=== PATIENT | male | born 1975 | race African-American/Black ===

== ENCOUNTER 2024-03-28 09:43 | Outpatient (AMB) | payer OTHER, SELFPAY ==
--- NOTE | 2024-03-28 09:51 | HO.SPINEOV ---
Intake Visit Reasons: Lumbar radiculopathy Intake Note: Mr. Hughes is here today c/o low back pain radiating into left leg. 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 HPI: This 49-year-old male states that he developed pain radiating down his left leg several years ago. Over time, the pain has significantly increased with the electric shocks going down his legs and associated weakness. Specifically, the pain radiates down the outside of her thigh into his groin and to the outside of his lower leg to the top of his foot. It is associated with tingling. He can not stand for prolonged period of times. He noticed a mild footdrop on the left side. He underwent physical therapy chiropractic therapy and cortisone injections without long-lasting results. He comes in for surgical consultation. PMH: Hypertension Medications: [] Allergies: NKDA Social history: Nonsmoker. 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 He sits with his left leg stretched out to avoid pain. Straight leg raise is negative. There is a grade 4/5 weakness of the dorsiflexors and extensor hallucis longus. Radiological Studies: MRI done at [facility] is not available for review. The report states that there is severe spinal stenosis at L4-5 and an extraforaminal compression of the left L5 nerve root. Impression/Plan: This 49-year-old male is suffering from a persistent left L5 lumbar radiculopathy with associated weakness. The report is indicative of L5 pathology that requires a decompression. I need to see the MRI to determine what type of intervention is required. The patient will return to my clinic with the MRI to finalize the plan. Thank you for allowing me to participate in your patients care. total time spent was 50 minutes in counseling ,coordination of plan, personal review of imaging, surgical decision making and subsequent plan Kiet Tierney MD, PhD Spine Fellowship Trained Neurosurgeon Director, [facility] Coding Level of Care Code New Pt Level 4 (84850) Diagnoses Lumbar stenosis with neurogenic claudication M48.062
--- NOTE | 2024-04-02 13:12 | A.SPINEOV_ITS ---
Intake Visit Reasons: Lumbar radiculopathy Assessment & Plan Assessment & Plan (1) Lumbar stenosis with neurogenic claudication: Code(s): M48.062 - Spinal stenosis, lumbar region with neurogenic claudication Category: Medical Plan: Dear colleague, On 04/02/2024, I saw for follow-up Haider Hughes to discuss his MRI findings. As you know, he suffering from a left lumbar radiculopathy/neurogenic claudication with a partial drop foot. The MRI was reviewed in detail with the patient and shows severe spinal stenosis L4-5 and severe bilateral L5 foraminal stenosis. In addition there is also moderate L2-3 central spinal stenosis. Clinically, the patient is suffering from an L5 nerve root impingement and therefore I propose to do a left L4-5 hemilaminotomy and L5 foraminotomy to decompress the L5 nerve root. I discussed the procedure, complications and expected outcome. He will be scheduled for 06/26/2024. I spent 20 minutes in his consult. Kiet Tierney MD, PhD Spine Fellowship Trained Neurosurgeon Director, [facility] Coding Level of Care Code Est Pt Level 3 (63312) Diagnoses Lumbar stenosis with neurogenic claudication M48.062
== END 2024-03-28 11:30 | disposition left against medical advice (07) ==
PROVIDERS: PCP Internal Medicine; Referring Provider Physical Medicine & Rehabilitation; Visit Provider Neurological Surgery
DX: M48.062 Spinal stenosis, lumbar region with neurogenic claudication (principal)
CPT/HCPCS: 99204

== ENCOUNTER → 2024-03-28 09:43 | Outpatient (BNVA) | payer OTHER, SELFPAY | PROVIDERS: PCP Internal Medicine; Visit Provider Neurological Surgery ==

== ENCOUNTER → 2024-04-02 12:36 | Outpatient (BNVA) | payer OTHER, SELFPAY | PROVIDERS: PCP Internal Medicine; Visit Provider Neurological Surgery ==

== ENCOUNTER 2024-08-21 07:44 | Day surgery (SDC) | payer OTHER, SELFPAY ==
[2024-07-09 12:10] VITALS: BMI 23.6
--- NOTE | 2024-08-19 14:26 | HO.ANESPROP2 ---
HPI - Anesthesia Eval Consult details Narrative: 49yo M for Left L4-5 Laminotomy and L5 foraminotomy PMFSH Active Problems Active Problems: All Active Problems Lumbar stenosis with neurogenic claudication (Acute) Past Medical History Medical History Difficulty swallowing Lumbar stenosis Chronic low back pain HTN (hypertension) Surgical History Surgical History H/O colonoscopy Social History Social History Are you a primary childcare attendant to a significant other at home: No Do you presently have visiting nurse or other home services: No Patient Tobacco Use Status: Never used Tobacco Meds Allergies Allergy/AdvReac Type Severity Reaction Status Date / Time No Known Allergies Allergy Verified 08/21/24 08:46 Home Medications ?Medication ?Instructions ?Recorded ?Confirmed ?Last Taken ?Type amlodipine 5 mg tablet 5 mg PO BID 06/17/24 06/17/24 Unknown History celecoxib 50 mg capsule 50 mg PO BID PRN Pain 06/17/24 07/08/24 Unknown History tizanidine 2 mg tablet 2 mg PO TID 06/17/24 06/17/24 Unknown History Exam Height,Weight and Vital Signs: Height 5 ft 9 in Weight 72.575 kg Assessment and Plan Assessment Anesthesia Assessment: Chart Reviewed
[2024-08-21] VITALS (11 sets, daily range): BP systolic 126–150; BP diastolic 71–99; PULSE 54–87; RESP 13–16; TEMP 36.1–37; O2SAT 96–100
--- NOTE | 2024-08-21 07:08 | MHC.SHP ---
Pre-Procedural Eval Section A - 24 Hr Update-Section A only Date of Service: 08/21/24 The patient is an INPATIENT: No Changes since office visit: No Cold of Flu in the past 2 weeks, No New Medical Problems, No Changes in Medication and No Patient answered all questions The patient has been examined within 24 hours of the surgical procedure. The History & Physical has been completed within 30 days and I have reviewed it.: Yes Section B - Complete if H&P > 30 days Chief Complaint: Spinal stenosis, lumbar region with neurogenic Allergies: Allergies Allergy/AdvReac Type Severity Reaction Status Date / Time No Known Allergies Allergy Verified 07/08/24 09:04 Review of Systems Sugical H&P ROS: Negative: Constitution, Cardiovascular, Respiratory, Neurological, Psychiatric, Hem-Onc, Allergic/Immunologic, Gastrointestinal, Genitourinary, Musculoskeletal, Integumentary, Endocrine and Eyes/Ears/Nose/Throat Exam Surgical H&P Exam: Normal: HEENT, Normal: Heart, Normal: Lungs, Normal: Extremities, Normal: Abdomen, Normal: Skin and Normal: Neurological (awake, alert,oriented x 3 ) Plan Diagnosis/Plan: Unchanged left L4-5 decompression, left 5 foraminotomy Time Spent With Patient Time: Total time managing care of this patient today _5___ minutes.
--- NOTE | 2024-08-21 07:33 | PM.DS ---
DS: Providers Provider Date of Service: 08/21/24 Date of discharge: 08/21/24 Primary care physician: Unknown Physician Admitting clinician: Kiet Tierney DS: Diagnosis Discharge Diagnosis (1) Lumbar stenosis with neurogenic claudication: Status: Acute DS: Summary Time Attestation Discharge Coordination Time (in mins): 5 Quality: Safe Use of Opioids Does Pt have an Active Cancer Diagnosis on the Problem List?: No Quality: Stroke Does the patient have a stroke diagnosis?: No Physical Exam Vital Signs: Vital Signs: BMI result Body Mass Index 23.6 Discharge Plan Discharge Patient Disposition: Home, Self-Care Referrals: Physician,Unknown J [Primary Care Provider] - 1 Week Discharge Medications: New docusate sodium [Colace] 100 mg capsule 100 mg PO BID Qty: 20 0RF oxycodone 5 mg tablet 5 mg PO Q4H PRN (Reason: pain) Qty: 30 0RF Rx Instructions: Partial Fill upon patient request. Continued tizanidine 2 mg tablet 2 mg PO TID amlodipine 5 mg tablet 5 mg PO BID celecoxib 50 mg capsule 50 mg PO BID PRN (Reason: Pain) Discharge Orders: Discharge Order (Routine); Ordered 08/21/24 Ordered By: Mihai Gallegos Diet: Advance to usual diet Activity on Discharge: As tolerated Activity Restrictions/Additional Instructions: After your spinal surgery we ask you to observe the following restrictions/guidelines: Activity: It is normal to feel some discomfort as you increase your activity, but that will improve with time. We ask you avoid heavy lifting or acitivities that cause pain. As a general rule, 8lbs is a safe limit for lifting right after surgery. Walk as much as you feel comfortable but not to exhaustion. You will feel extra tired the first few days after surgery. Stay well hydrated. It is OK to walk up and down stairs You may return to driving when you are off narcotics (such as vicodin, oxycodone, dilaudid, etc), and you are back to normal functional capacity. If you have any concerns please check with office before driving. Return to work is specific to each patient and each surgery, so please speak with your doctor/PA at first follow up. Please bring paperwork such as FMLA at that time if you need it filled out. Medications: For optimum pain control, it is best to start with a combination of 500 mg of Tylenol every 4 hours with 600 mg of Motrin every 8 hours, and use narcotics as needed in between for breakthrough pain. We will give you a short supply of narcotics after surgery (usually one weeks worth). If you need more please call the office but do not use more than prescribed. You will need to give our office 48 hours notice if you need narcotics refilled and we do not fill narcotics on weekends or evenings. If you are on a narcotic, it is a good idea to take a stool softener such as colace or senna to avoid constipation If you take blood thinner such as aspirin, Plavix, Coumadin, Effient, Eliquis etc for conditions such as Afib, DVT, Pulmonary embolus, coronary disease, stents etc please speak with your surgeon about specific details as to when you can resume these medications. You can resume NSAIDs on post op day 1 (eg: Motrin, Naproxen, etc). Follow up: Please call the office, , after surgery to arrange a 3 week follow up for wound check. Wound Care: You may remove your dressing on the first day after surgery. ?You may ?leave open to air. Please do not remove the steri strips underneath. they will fall off on their own in one week. IT IS NORMAL FOR THE WOUND TO OOZE OR BE BLOODY FOR A FEW DAYS AFTER SURGERY. ?IF THIS HAPPENS JUST PLACE NEW DRESSING OVER IT TO AVOID STAINING CLOTHES. You may shower on post op day # 1 We ask that you do not let the water soak the wound. If it does get wet, just towel dry lightly. Please do not scrub your incision or place any type of chemical/ointment on the wound. No tub baths, pools or jacuzzis for one month. If you have any leaking or redness from your wound, or fevers, please call office Print Language: Divehi
--- NOTE | 2024-08-21 07:48 | P.CONAN_ITS ---
[facility] Active Problems Active Problems: All Active Problems Lumbar stenosis with neurogenic claudication (Acute) Past Medical History Medical History Difficulty swallowing Lumbar stenosis Chronic low back pain HTN (hypertension) Functional capacity: independent ambulation Family History Family history of problems with anesthesia: No Surgical History Surgical History H/O colonoscopy History of Problems with Anesthesia: No Social History Social History Are you a primary ocular care technologist to a significant other at home: No Do you presently have visiting nurse or other home services: No Patient Tobacco Use Status: Never used Tobacco Use of substances other than those prescribed or required for medical reasons: No Have you been hit, kicked, punched, or otherwise hurt by someone within the past year? If so, by whom?: No Spiritual Healthcare Practices: none Yarsanism Healthcare Practices: Denominational Cultural Healthcare Practices: none Are you DNR?: No Advance Directives: No ( is primary contact) Advance Directives Information Provided: Yes (as above noted) Advance Directives on File: No Recently lost weight without trying: No Eating poorly because of decreased appetite: No Nutrition Risks: No Nutritional Risk Poor oral hygiene: No Meds Allergies Allergy/AdvReac Type Severity Reaction Status Date / Time No Known Allergies Allergy Verified 07/08/24 09:04 Home Medications ?Medication ?Instructions ?Recorded ?Confirmed ?Last Taken ?Type amlodipine 5 mg tablet 5 mg PO BID 06/17/24 06/17/24 Unknown History celecoxib 50 mg capsule 50 mg PO BID PRN Pain 06/17/24 07/08/24 Unknown History tizanidine 2 mg tablet 2 mg PO TID 06/17/24 06/17/24 Unknown History Exam Height,Weight and Vital Signs: Height 5 ft 9 in Weight 72.575 kg Airway Mallampati Class: II TM Dist: >3cm Neck ROM: Full Heart: RRR Lungs: CTA Assessment and Plan Assessment Anesthesia Assessment: Anesthesia Plan Discussed and Chart Reviewed Final Anesthetic Review Family History of Problems with Anesthesia: No History of Problems with Anesthesia: No NPO: Yes ASA Class: II Final Preanesthetic Review: Meds/Allgs Chart Reviewed, Consent Obtained/Reviewed and Anes Risks/Benef Reviewed Patient Risk: Intermediate Procedure Risk: Intermediate Anesthetic Plan Anesthetic Plan: GA Disposition: Standard PACU
[2024-08-21] MEDS: Lactated Ringers 1,000 ML 100 ML IVCONT (08:26)
[2024-08-21] MEDS: methocarbamoL 750 MG TABLET PO (08:26)
[2024-08-21] MEDS: Gabapentin 300 MG CAPSULE PO (08:26)
--- NOTE | 2024-08-21 09:56 | W.PM.OPN ---
Operative Note Operative Note Date of Service: 08/21/24 Narrative: Preoperative Diagnosis: Spinal stenosis/lateral recess stenosis/neural foraminal stenosis Operation: Left L4-5 Laminotomy, Partial facetectomy and foraminotomy with use of microscope Consent Informed Consent was obtained for this operation. I have explained the nature, purpose and benefits of the operation. I have discussed the risks and benefit of the operation including possible complications or adverse events with patient/family. Alternative(s) were discussed with the patient with their relative benefits and risks as well as the consequences of not accepting the operation were included in obtaining consent. Surgeon: TRACE DAVIS MD, PHD Procedure Assisted By: manoj Llanes Description of Procedure This patient is suffering from a left L5 radiculopathy due to lateral recess stenosis and neuroforaminal stenosis. The patient was offered a decompression of the nervous structures. The procedure complications were explained. The patient was consented. The patient was brought to the operating room and endotracheally intubated. The patient was turned in prone position on the Abiodun frame. Prep and drape was done followed by timeout. Physician bilingual office assistant provided access. A mid lumbar incision was made followed by release of the paravertebral muscle on the left side to expose the L4-5 lamina and facet joint. An intraoperative x-ray was obtained to confirm the correct level. The microscope was brought in. I took over the procedure. The high-speed drill was used to do a L4-5 laminotomy. #2 Kerrison was used to further remove the lamina towards the L5 foramen. With a nerve hook the medial wall of the L5 pedicle was palpated as well as the beginning of the L5 foramen. The facet joint was partially drilled down after which with a #2 Kerrison a foraminotomy was done. Finally a foraminotomy Kerrison was used to complete the foraminotomy. Significant foraminal stenosis was present. A long nerve hook could be easily passed lateral and dorsally from the nerve root, a sign of relief of the neuroforaminal stenosis and decompression of the nerve root . The microscope was removed. Hemostasis was done. Incision was closed in 2 layers. Steri-Strips were used to approximate incision. An OpSite with Tegaderm was used to cover the incision. All sponge needle counts were correct. Patient was extubated and transported in stable is to recovery room. Anesthesia: General Estimated Blood Loss (ml): Minimal Duration of Surgery: Under 60 Minutes Postoperative Plan: Discharge to home
--- NOTE | 2024-08-21 11:28 | HO.POSTANES ---
Post Anesthesia Evaluation Post Anesthesia Evaluation Date of Service: 08/21/24 Vital Signs: Vital Signs Temp Pulse Resp BP Pulse Ox O2 Del Method O2 Flow Rate 08/21/24 11:14 67 14 126/74 100 Room Air 08/21/24 11:00 64 13 126/77 100 Nasal Cannula with ETCO2 2 08/21/24 10:45 66 14 128/71 100 Nasal Cannula with ETCO2 2 08/21/24 10:30 67 14 132/73 100 Nasal Cannula with ETCO2 2 08/21/24 10:25 72 14 138/85 99 Nasal Cannula with ETCO2 2 08/21/24 10:20 81 13 134/79 99 Nasal Cannula with ETCO2 2 08/21/24 10:15 97 F 87 16 133/83 99 Nasal Cannula with ETCO2 2 08/21/24 08:55 98.6 F 54 16 150/99 H 96 Room Air Anesthesia: General Endotracheal-GETA Mental Status: Awake Pain Control: Satisfactory Nausea/Vomiting: None Hydration: Adequate Anesthesia-Related Issues: No Anes. Related Issues
[2024-08-21] MEDS: oxyCODONE HCl Immed Release 5 MG TABLET PO (11:32)
== END 2024-08-21 12:27 | disposition home or self-care (01) ==
LOC: HO.SSS 07:45
PROVIDERS: Visit Provider Neurological Surgery
PROC: (CPT 63047; principal; 2024-08-21 09:00)
DX: M48.062 Spinal stenosis, lumbar region with neurogenic claudication (principal); M21.379 Foot drop, unspecified foot; G89.29 Other chronic pain; M54.50 Low back pain, unspecified; I10 Essential (primary) hypertension; Z79.899 Other long term (current) drug therapy
CPT/HCPCS: 63047; J0131; J0690; J1100; J1596; J1885; J2003; J2250; J2405; J2704; J3010

== ENCOUNTER → 2024-08-21 07:44 | Outpatient (BNV) | payer OTHER, SELFPAY | PROVIDERS: Visit Provider Neurological Surgery | DX: M48.062 Spinal stenosis, lumbar region with neurogenic claudication (principal) | CPT/HCPCS: 63047; 99499 ==

== ENCOUNTER 2024-09-12 13:48 | Outpatient (AMB) | payer OTHER, SELFPAY ==
--- NOTE | 2024-09-12 13:58 | HO.SPINEOV ---
Intake Visit Reasons: 1st post op Intake Note: Mr. Hughes is here today for his 1st post op. 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 He underwent a left L4-5 lumbar laminotomy to decompress the L5 nerve root on 08/21/2024. He states that his radiculopathy has much improved. On exam, the incision is healed. There are no neurological deficits. He is allowed to resume activities. He will stay out of work for another 4 weeks the to the nature of the activities he has to perform. He will return to my office as needed. Thank you for allowing me take care of your patient. Kiet Tierney MD, PhD Spine Fellowship Trained Neurosurgeon Director, [facility] Coding Level of Care Code Global (71654) Diagnoses Status post lumbar spine surgery for decompression of spinal cord Z98.890
== END 2024-09-12 14:15 | disposition home or self-care (01) ==
PROVIDERS: Visit Provider Neurological Surgery
DX: Z98.890 Other specified postprocedural states (principal)
CPT/HCPCS: 99024

== ENCOUNTER → 2024-09-12 13:48 | Outpatient (BNVA) | payer OTHER, SELFPAY | PROVIDERS: Visit Provider Neurological Surgery ==